=== PATIENT | female | born 1985 | race Caucasian/White ===

== ENCOUNTER 2017-07-19 16:54 | Inpatient (IN) | payer BC ==
[~2017-07-19] VITALS: Ht 162.6 cm; Wt 90.9 kg
[~2017-07-19 16:54] MED LIST: MOTRIN 600600 MG/TAB PO; PERCOCET 325 MG1 TA2 PO; PRENATAL1 TA1 PO; PROTONIX20 MG PO
[2017-08-30] VITALS (19 sets, daily range): BP systolic 96–124; BP diastolic 62–83; PULSE 57–80; TEMP 97.5–98.3
[2017-08-30 06:29] LABS: BASO # 0.1 (0.0-0.2); BASO % 0.4 % (0.0-2.0); EOS # 0.2 (0.0-0.7); EOS % 1.4 % (0-4.0); GRAN # 9.4 (1.4-6.5); GRAN % 67.2 % (42.2-75.2); LYMPH # 3.3 (1.2-3.4); LYMPH % 23.3 % (20.0-51.0); MEAN CELL VOLUME 82 fl (80.0-100.0); MEAN CORPUSCULAR HGB CONC 32 g/dl (33.0-37.0); MEAN PLATELET VOLUME 10.3 fl (7.4-10.4); MONO % 7.1 % (1.7-9.3); PLATELET COUNT 240 K/mm3 (130-400); RED BLOOD COUNT 4.22 M/mm3 (4.10-5.30); REDCELL DISTRIBUTION WIDTH-CV 14.1 % (11.5-14.5)
[2017-08-30 06:30] LABS: HEMATOCRIT 34.6 % (37.0-47.0); HEMOGLOBIN 11.1 g/dl (12.5-16.0); MEAN CORPUSCULAR HEMOGLOBIN 26 pg (27.0-31.0)
[2017-08-31 07:08] VITALS: BP 127/77; PULSE 60; TEMP 98.4
[2017-08-31 15:32] VITALS: BP 113/64; PULSE 65; TEMP 97.5
[2017-08-31 20:45] VITALS: BP 130/69; PULSE 68; TEMP 98.2
[2017-09-01 07:50] VITALS: BP 114/82; PULSE 71; TEMP 98.8
[2017-09-01] MEDS ORDERED: IBU800 M1 PO (08:42)
[2017-09-01] MEDS ORDERED: PERCOCET 325 MG1 TA2 PO (08:42)
== END 2017-09-01 15:30 | disposition home or self-care (01) | DRG 766 ==
LOC: OB 08-30 05:35 → LDR 09-04 16:54
PROVIDERS: Student in an Organized Health Care Education/Training Program
PROC: 10D00Z1 Extraction of Products of Conception, Low, Open Approach (ICD-10-PCS; principal; 2017-08-30)
DX: O34.211 Maternal care for low transverse scar from previous cesarean delivery (principal); N85.8 Other specified noninflammatory disorders of uterus; O34.83 Maternal care for other abnormalities of pelvic organs, third trimester; E28.2 Polycystic ovarian syndrome; Z3A.39 39 weeks gestation of pregnancy; Z37.0 Single live birth
CPT/HCPCS: J0690; J1885; J2270; J2370; J2405; J2550; J2590; J7120

== ENCOUNTER 2019-10-23 06:32 | Inpatient (IN) | payer BC ==
[2019-10-23] VITALS (17 sets, daily range): BP systolic 107–132; BP diastolic 65–92; PULSE 51–76; TEMP 98–98.7
[~2019-10-23] VITALS: Ht 165.2 cm; Wt 94.1 kg
[~2019-10-23 06:32] MED LIST changes: +IBU800 M1 PO
[2019-10-23 11:06] LABS: BASO % 0.3 % (0.0-2.0); EOS # 0.2 (0.0-0.7); EOS % 1.5 % (0-4.0); GRAN # 7.6 (1.4-6.5); GRAN % 66.9 % (42.2-75.2); HEMOGLOBIN 11.3 g/dl (12.5-16.0); LYMPH # 2.7 (1.2-3.4); LYMPH % 23.6 % (20.0-51.0); MEAN CELL VOLUME 85 fl (80.0-100.0); MEAN CORPUSCULAR HEMOGLOBIN 27 pg (27.0-31.0); MEAN CORPUSCULAR HGB CONC 32 g/dl (33.0-37.0); MEAN PLATELET VOLUME 10.2 fl (7.4-10.4); MONO # 0.8 (0.1-0.6); MONO % 7.3 % (1.7-9.3); PLATELET COUNT 274 K/mm3 (130-400); RED BLOOD COUNT 4.14 M/mm3 (4.10-5.30); REDCELL DISTRIBUTION WIDTH-CV 13.3 % (11.5-14.5)
[2019-10-23 11:09] LABS: HEMATOCRIT 35.1 % (37.0-47.0)
--- NOTE | 2019-10-23 15:50 | NUR ---
Patient ambulatory to bathroom with stand by assist. Rogers catheter removed and patient tolerates well. Pericare done, patient changed into clothes, new underwear/pad on. Patient ambulates in room. Plan of care discussed.
[2019-10-24 07:40] VITALS: BP 138/89; PULSE 67; TEMP 97.8
--- NOTE | 2019-10-24 09:13 | NUR ---
Initialvisit; Mom thanked Airfield Engineer Officer for offering spiritual care for the of her daughter. Airfield Engineer Officer thanked mom for choosing [facility].
[2019-10-24] MEDS ORDERED: PERCOCET 325 MG1 TA2 PO (09:15)
[2019-10-24] MEDS ORDERED: IBU600 MG PO (09:15)
[2019-10-24 11:55] VITALS: BP 129/84; PULSE 73; TEMP 98.2
[2019-10-24 16:40] VITALS: BP 145/88; PULSE 72; TEMP 98.1
[2019-10-24 21:00] VITALS: BP 145/75; PULSE 66; TEMP 98.1
[2019-10-25 07:25] VITALS: BP 138/88; PULSE 68; TEMP 98.5
== END 2019-10-25 13:10 | disposition home or self-care (01) | DRG 788 ==
LOC: LDR 06:32 → OB 10:10
PROVIDERS: Obstetrics & Gynecology; ADMIT Student in an Organized Health Care Education/Training Program
PROC: 10D00Z1 Extraction of Products of Conception, Low, Open Approach (ICD-10-PCS; principal; 2019-10-23)
DX: O34.211 Maternal care for low transverse scar from previous cesarean delivery (principal); O99.62 Diseases of the digestive system complicating childbirth; Z3A.39 39 weeks gestation of pregnancy; Z37.0 Single live birth
CPT/HCPCS: J0690; J1885; J2270; J2370; J2405; J2550; J2590; J2765; J7120